=== PATIENT | male | born 1955 | race Caucasian/White ===

== ENCOUNTER 2016-04-01 23:58 | Emergency (ER) | payer OTHER ==
[~2016-04-01] VITALS: Ht 182.9 cm; Wt 89.5 kg
[~2016-04-01 23:58] MED LIST: ATOR20TA38 PO; CLON-412 PO; HYDR-3612 PO; OMEP40CA6 PO
[2016-04-02 00:23] VITALS: Ht 182.9 cm; Wt 89.5 kg
[2016-04-02] MEDS ORDERED: KETOROLAC 15 MG INJ IM STA (05:28)
--- NOTE | 2016-04-02 06:06 | ERD ---
ER Documentation Chief Complaint Date/Time DATE: 04/02/16 TIME: 06:06 Chief Complaint Left leg pain HPI 60 year old male BIB EMS presents to ED with CC of left leg pain x weeks. Patient states that he has a history of low back pain and arthritis. He believes he has been walking more than usual and now has pain in left hip and knee. He denies fever, erythema, swelling, trauma, numbness/tingling, loss of bowel control, urinary incontinence and loss in ROM. He is seen by a pain management physician, how prescribes him Oxycodone. He states that the alleviates his pain, and he has not finished his last prescription yet. Denies recent travel. States that pain does not occur only while walking and does not get better with rest. ROS All systems reviewed and are negative except as per history of present illness. Medications Home Meds Active Scripts Cyclobenzaprine Hcl* (Cyclobenzaprine Hcl*) 10 Mg Tablet, 10 MG PO TID, #15 TAB Prov:Eli Arriaza PA-C 04/02/16 Reported Medications Atorvastatin Calcium* (Atorvastatin Calcium*) 20 Mg Tablet, 20 MG PO HS, TAB 05/07/14 Clonazepam* (Klonopin*) 1 Mg Tablet, 2 MG PO BID 10/26/12 Hydrocodone Bit-Acetaminophen* ([place]*) 1 Tab Tab, 1 TAB PO BID Y 10/26/12 Omeprazole* (Omeprazole*) 40 Mg Capsule.dr, 40 MG PO DAILY 10/26/12 Allergies Allergies: Coded Allergies: No Known Allergy (Verified , 05/07/14) PMhx/Soc History of Surgery: Yes (left hip replacement, left knee) Anesthesia Reaction: No Hx Neurological Disorder: No Hx Respiratory Disorders: No Hx Cardiac Disorders: No Hx Psychiatric Problems: No Hx Miscellaneous Medical Probl: Yes (herniated discs) Hx Alcohol Use: Yes (occassional) Hx Substance Use: No Hx Tobacco Use: No Smoking Status: Never smoker Physical Exam Vitals Physical Exam GENERAL: Non-toxic. No apparent signs of distress. LUNGS: Clear to auscultation. No accessory muscle use. No wheezing, no crackles. No signs or symptoms of respiratory distress. HEART: Regular rate and rhythm. No murmurs, clicks, rubs or gallops. BACK: No midline tenderness, no erythema or edema, no crepitus, no CVA tenderness EXTREMITIES: Full ROM in all extremities, no notable trauma or tenderness to palpation of joints.2+ DP pulses bilaterally. Good cap refill. NEURO: 5/5 strength in all extremities, negative straight leg raise bilaterally , full sensation intact in BLE. Cranial nerves are grossly intact. Normal mental status for age. Good muscle tone. SKIN: There is no apparent rash, petechiae, erythema or swelling. Good skin turgor. Results 24 hrs Current Medications Medications (Trade) Dose Ordered Sig/Janie Route PRN Reason Start Time Stop Time Status Last Admin Dose Admin Ketorolac Tromethamine (Toradol) 15 mg ONCE STAT IM 04/02/16 05:28 04/02/16 05:30 DC 04/02/16 05:44 Procedures/MDM Patient was comfortably asleep as I walked into the exam room, he stated that he was able to sleep for 3 hours in the waiting room as well and is now feeling much better. States that the pain in his leg is improving. He has chronic low back pain and knee pain, for which he is sees a pain management provider for. He says that Oxycodone relieves his pain, but he is not asking for this today because he says that he still has some of his medication left. On exam the patient had full ROM In all extremities, had a normal neuro exam, and denies any red flag symptoms including loss of bowel control and urinary incontinence. I offered to give the patient a shot of Toradol, as he already is taking narcotic pain meds at home. Patient agreed to this plan. Will reassess after treatment. Patient tolerated Toradol well and stated that he had some relief of his pain, says he will continue to follow-up with his pain management doctor. I did offer a prescription for Flexeril in the event that exacerbation of pain is due to muscle spasm, the sedating effects of this medication were discussed and patient told not to drive after taking it. At this time I have low suspicion for cauda equina syndrome, epidural abscess, cord compression, osteomyelitis, fracture, DVT, PAD (claudication pain) and neurovascular compromise. Patient is stable for discharge and outpatient management, advised to follow-up with PCP in 1-2 days. Departure Diagnosis: Primary Impression: Pain of left leg Additional Impression: Low back pain Chronicity: chronic Back pain laterality: bilateral Sciatica presence: without sciatica Qualified Code: M54.5 - Chronic bilateral low back pain without sciatica Condition: Eli Faith PA-C Apr 02, 2016 06:06
[2016-04-02] MEDS ORDERED: CYCL-319 PO (06:10)
[2016-04-02 06:18] VITALS: BP 107/64; PULSE 77; RESP 20; TEMP 97.6
== END 2016-04-02 06:21 | disposition home or self-care (01) ==
LOC: FTE 23:58
DX: M79.605 Pain in left leg (principal); M54.5 Low back pain; Z96.642 Presence of left artificial hip joint
CPT/HCPCS: 96372; J1885

== ENCOUNTER 2016-05-17 10:32 | Emergency (ER) | payer OTHER ==
[~2016-05-17] VITALS: Ht 180.3 cm; Wt 80.5 kg
[~2016-05-17 10:32] MED LIST changes: +CYCL-319 PO
[2016-05-17 10:39] VITALS: Ht 180.3 cm; Wt 80.5 kg
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
--- NOTE | 2016-05-17 13:33 | RADRPT ---
PROCEDURE: CT Facial Bones. CLINICAL INDICATION: Trauma. Facial pain. TECHNIQUE: Helical axial sections were obtained through the facial bones without intravenous contr ast enhancement. Sagittal and coronal reformatted images were accomplished using the data from the axial images. Total exam DLP is 597.28 mGy-cm. CTDIvol is 29.54 mGy. One or more of the followin g dose reduction techniques were used: Automated exposure control, adjustment of the mA and/or kV ac cording to patient size, use of iterative reconstruction technique. COMPARISON: No prior study is available for comparison. FINDINGS: Paranasal sinuses are normal. There is no fluid, mass, or mucosal thickening. There is no bone abnormality. There is no fracture. There is no lytic or blastic lesion. The orbits are normal. The globes are intact. The extraocular muscles and optic nerves are normal. There is mild deviation of the superior nasal septum to the right. The ostiomeatal complexes are normal. There is a left middle turbinate natalie bullosa. The turbinates are otherwise normal. The mandible and maxilla are intact. The zygomatic arches and pterygoid plates are normal. IMPRESSION: 1. Mild deviation of the superior nasal septum to the right. 2. Left middle turbinate natalie bullosa. 3. Otherwise unremarkable study with no acute abnormality. RPTAT: QQ .Endy Coto MD, Date Time Electronically viewed and signed by .Endy Coto MD, on 05/17/2016 13:33 .R/
[2016-05-17] MEDS ORDERED: ACET500C5 PO (13:38)
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
== END 2016-05-17 14:32 | disposition home or self-care (01) ==
LOC: FTE 10:32
DX: S00.83XA Contusion of other part of head, initial encounter (principal); Y04.0XXA Assault by unarmed brawl or fight, initial encounter; Y92.009 Unspecified place in unspecified non-institutional (private) residence as the place of occurrence of the external cause; Z96.642 Presence of left artificial hip joint
CPT/HCPCS: 70450; 70486; 72125; Z7502

== ENCOUNTER 2018-09-16 04:15 | Inpatient (IN) | payer OTHER ==
[~2018-09-16] VITALS: Ht 182.9 cm; Wt 88.1 kg
[~2018-09-16 04:15] MED LIST changes: +ACET500C5 PO; +BUPR300T4 PO; -CYCL-319 PO; +CYCL10TA7 PO; +LURA120T PO; +NAPR-985 PO; +OXYC30TA PO; +TRAZ150T65 PO
[2018-09-16 06:15] VITALS: BP 90/57; PULSE 68; RESP 17
[2018-09-16 07:25] VITALS: BP 95/50; PULSE 75; RESP 18
[2018-09-16 10:02] VITALS: Ht 182.9 cm; Wt 88.1 kg
[2018-09-16] MEDS ORDERED: HYDROCODONE/APAP (5/325) TAB PO PRN (10:30)
[2018-09-16] MEDS ORDERED: ACETAMINOPHEN 325 MG TAB PO PRN (10:30)
[2018-09-16] MEDS ORDERED: morphine 2 MG INJ IV PRN (10:30)
[2018-09-16] MEDS ORDERED: ONDANSETRON 4 MG INJ IV PRN (10:30)
[2018-09-16] MEDS ORDERED: MAGNESIUM HYDROXIDE 30ML CUP PO PRN (10:30)
[2018-09-16] MEDS ORDERED: NACL 0.9% 3 ML SYG IV SCH (10:30)
[2018-09-16 11:15] VITALS: BP 88/54; PULSE 76; RESP 22
[2018-09-16] MEDS: LEVOFLOXACIN 750MG/D5W (PMX) 150 ML IVPB SCH (12:32)
[2018-09-16] MEDS: BUPROPION (XL) 150 MG TAB PO SCH (12:35)
[2018-09-16] MEDS: clonAZEPAM 0.5 MG TAB PO SCH ×2 (12:35→21:00)
[2018-09-16] MEDS: HEPARIN 5,000 UNIT/1 ML VIAL SC SCH ×3 (14:39→22:00)
--- NOTE | 2018-09-16 15:13 | HP ---
Date/Time of Note Date/Time of Note DATE: 09/16/18 TIME: 15:06 Assessment/Plan VTE Prophylaxis Risk score (from Ns)>0 risk: 5 SCD applied (from Ns): Yes Pharmacological prophylaxis: heparin Lines/Catheters IV [facility]from [facility] [place] Urinary Cath still in place: No Assessment/Plan Hospital Course Assessment and plan 1. Sepsis pneumonia Continue with antibiotic. Antipyretics for fever Trend lactic level. Titrate down O2 Bronchodilators as needed f/u procalcitonin 2. History of substance abuse Patient reports living at sober living. No active issue noted at this time. 3. Leukocytosis secondary to #1 Antibiotics as needed for fever. 4. Normocytic normal chromic anemia Stable at present. Monitor 5. Reported dizziness Suspect dehydrated We will start IV fluids. Discussed POC with Result Diagram: 09/16/18 1041 09/16/18 1041 Results 24hrs Laboratory Tests Test 09/16/18 10:41 White Blood Count 12.1 H Red Blood Count 3.03 L Hemoglobin 9.6 L Hematocrit 28.8 L Mean Corpuscular Volume 95.0 Mean Corpuscular Hemoglobin 31.7 Mean Corpuscular Hemoglobin Concent 33.3 Red Cell Distribution Width 12.6 Platelet Count 168 Mean Platelet Volume 11.5 H Immature Granulocytes % 0.500 H Neutrophils % 79.8 H Lymphocytes % 8.1 L Monocytes % 10.0 Eosinophils % 1.3 Basophils % 0.3 Nucleated Red Blood Cells % 0.0 Immature Granulocytes # 0.060 H Neutrophils # 9.6 H Lymphocytes # 1.0 Monocytes # 1.2 H Eosinophils # 0.2 Basophils # 0.0 Nucleated Red Blood Cells # 0.0 Sodium Level 139 Potassium Level 3.8 Chloride Level 101 Carbon Dioxide Level 32 H Anion Gap 6 Blood Urea Nitrogen 15 Creatinine 0.74 Est Glomerular Filtrat Rate mL/min > 60 Glucose Level 110 Hemoglobin A1c 5.0 Calcium Level 8.5 Total Bilirubin 0.5 Direct Bilirubin 0.00 Indirect Bilirubin 0.5 Aspartate Amino Transf (AST/SGOT) 17 Alanine Aminotransferase (ALT/SGPT) 29 Alkaline Phosphatase 43 Total Protein 5.7 L Albumin 3.3 Globulin 2.40 Albumin/Globulin Ratio 1.37 HPI/ROS Admit Date/Time Admit Date/Time Sep 16, 2018 at 05:56 Hx of Present Illness This is a 63-year-old male with reported past medical history of bipolar disorder, depression, substance abuse with alcohol, who came to the hospital due to reports of dizziness and disorientation. Patient resides at a sober living. He states that he was going to the gym yesterday when he started to feel disoriented. Denies any chest pain or shortness of breath. He did not report losing any consciousness. Due to his symptoms tablets as well and is brought to the hospital at [place]. At outside hospital he was noted with some leukocytosis with white count at 13.3 thousand. Lactic acid was also seen at 2.4. He did have CT scan of his head also done with no evidence of acute infarction or hemorrhage. Chest x-ray was done however that did show patchy consolidation in the right upper and lower lung zones compatible with pneumonia. Due to insurance issues he was brought brought to [facility] for further evaluation. Labs again we demonstrated some leukocytosis likely from his pneumonia. He was afebrile on arrival. He was then to be shortness of breath. He has noted with some audible congestion upon auscultation. Chest x- ray in the hospital again redemonstrated right infrahilar consolidation or infiltrate compatible with pneumonia. We will evaluate him for the aformentiond issues. ROS 12 point review of systems obtained and entirely negative except that mentioned in history of present illness PMH/Family/Social Past Medical History Medical/surgical history 1.Bipolar disorder 2. Depression 2. Substance abuse with alcohol Medications Current Medications Atorvastatin Calcium (Lipitor) 20 mg HS PO ; Start 09/16/18 at 21:00 Bupropion HCl (Wellbutrin Xl) 300 mg DAILY PO Last administered on 09/16/18at 12:35; Admin Dose 300 MG; Start 09/16/18 at 12:00 Clonazepam (Klonopin) 2 mg BID PO Last administered on 09/16/18at 12:35; Admin Dose 2 MG; Start 09/16/18 at 10:30 Miscellaneous Information 120 mg QHS PO ; Start 09/16/18 at 21:00; Status UNV IV Flush (NS 3 ml) 3 ml PER PROTOCOL IV ; Start 09/16/18 at 10:30 Ondansetron HCl (Zofran Inj) 4 mg Q6H PRN IV NAUSEA/VOMITING; Start 09/16/18 at 10:30 Acetaminophen (Tylenol Tab) 650 mg Q6H PRN PO .PAIN 1-3 OR TEMP; Start 09/16/18 at 10:30 Acetaminophen/ Hydrocodone Bitart ([place] (5/325)) 1 tab Q6H PRN PO .MOD PAIN 4- 6; Start 09/16/18 at 10:30 Morphine Sulfate (morphine) 2 mg Q4H PRN IV .SEVERE PAIN 7-10; Start 09/16/18 at 10:30 Magnesium Hydroxide (Milk Of Mag) 30 ml DAILY PRN PO .CONSTIPATION; Start 09/16/18 at 10:30 Heparin Sodium (Porcine) (Heparin (5000 Units/1ml)) 5,000 unit Q8 SC Last administered on 09/16/18at 14:39; Admin Dose 5,000 UNIT; Start 09/16/18 at 14:00 Levofloxacin/ Dextrose 150 ml @ 100 mls/hr Q24H IVPB Last administered on 09/16/18at 12:32; Admin Dose 100 MLS/HR; Start 09/16/18 at 10:30 Pantoprazole (Protonix Tab) 40 mg DAILY@06 PO ; Start 09/17/18 at 06:00 Coded Allergies: No Known Allergy (Verified , 05/07/14) Social History Alcohol Use: other (History of alcohol abuse) Smoking Status: Unknown if ever smoked Drug Use: other (Denies) Exam/Review of Systems Vital Signs Vitals Vital Signs Date Temp Pulse Resp B/P (MAP) Pulse Ox O2 O2 Flow FiO2 Time Delivery Rate 09/16/18 98.0 76 22 88/54 (65) 95 11:15 09/16/18 4.0 10:09 09/16/18 Nasal 08:30 Cannula Exam Constitutional: alert, oriented Psych: nl mood/affect Head: normocephalic Eyes: nl conjunctiva Neck: supple, non-tender Respiratory: congested cough, other (No obvious wheezing or rhonchi but congestion audible on auscultation) Cardiovascular: other (Regular rate) Gastrointestinal: soft, non-tender Musculoskeletal: No swelling Neurological: PRODUCT MERCHANDISER II-XII intact, nl mental status, nl speech Skin: nl ISABELLA Bui NP Sep 16, 2018 15:13
[2018-09-16] MEDS: LACTATED RINGER'S 1,000 ML IV SCH (16:43)
[2018-09-16] MEDS ORDERED: ALBUTEROL/IPRATROPIUM (NEB) 3 ML AMP HHN PRN (17:00)
[2018-09-16 19:53] VITALS: BP 91/51; PULSE 69; RESP 20
[2018-09-16] MEDS ORDERED: NON-FORMULARY/PATIENT OWN MED (Lurasidone Hcl (Latuda) 120 MG) PO SCH (21:00)
[2018-09-16] MEDS: ATORVASTATIN 20 MG TAB PO SCH (21:41)
[2018-09-17] VITALS (7 sets, daily range): BP systolic 81–99; BP diastolic 48–59; PULSE 71–78; RESP 18–22
[2018-09-17] MEDS: LACTATED RINGER'S 1,000 ML IV SCH ×4 (04:17→19:30)
[2018-09-17] MEDS: HEPARIN 5,000 UNIT/1 ML VIAL SC SCH ×3 (06:00→19:57)
[2018-09-17] MEDS: PANTOPRAZOLE (EC) 40 MG TAB PO SCH (06:17)
[2018-09-17] MEDS ORDERED: SOD CHLORIDE 0.9% 500 ML IV ONE (08:30)
[2018-09-17] MEDS: BUPROPION (XL) 150 MG TAB PO SCH (08:39)
[2018-09-17] MEDS: clonAZEPAM 0.5 MG TAB PO SCH ×2 (08:39→19:48)
[2018-09-17] MEDS ORDERED: NON-FORMULARY/PATIENT OWN MED (Omeprazole* 40 MG) PO SCH (09:00)
[2018-09-17] MEDS: LEVOFLOXACIN 750MG/D5W (PMX) 150 ML IVPB SCH (10:07)
[2018-09-17] MEDS: [UNRECOGNIZED DRUG - OTHER] XX SCH ×2 (13:00→19:49)
--- NOTE | 2018-09-17 13:24 | PN ---
Date/Time of Note Date/Time of Note DATE: 09/17/18 TIME: 13:21 Assessment/Plan VTE Prophylaxis Risk score (from Ns)>0 risk: 4 SCD applied (from Ns): Yes Pharmacological prophylaxis: heparin Lines/Catheters IV [facility] Peripheral IV Urinary Cath still in place: No Assessment/Plan Hospital Course Assessment and plan 1. Sepsis pneumonia Continue with antibiotic. Antipyretics for fever Titrate down O2 Bronchodilators as needed 2. History of substance abuse Patient reports living at sober living. No active issue noted at this time. 3. Leukocytosis secondary to #1 Antibiotics as needed for fever. 4. Normocytic normal chromic anemia Stable at present. Monitor 5. Reported dizziness dehydration?/hypotension continue IVF f/u echo/carotid doppler/head CT Disposition and plan. Continue with IV fluids. Monitor blood pressure trend. Follow-up on echo/head CT/carotid Doppler. Further recommendations pending clinical course. Discussed POC with Result Diagram: 09/17/18 0514 09/17/18 0514 Results 24hrs Laboratory Tests Test 09/17/18 05:14 White Blood Count 7.9 # Red Blood Count 2.75 L Hemoglobin 8.6 L Hematocrit 27.1 L Mean Corpuscular Volume 98.5 Mean Corpuscular Hemoglobin 31.3 Mean Corpuscular Hemoglobin Concent 31.7 L Red Cell Distribution Width 12.6 Platelet Count 157 Mean Platelet Volume 11.6 H Immature Granulocytes % 0.400 Neutrophils % 72.4 Lymphocytes % 12.5 L Monocytes % 11.8 H Eosinophils % 2.4 Basophils % 0.5 Nucleated Red Blood Cells % 0.0 Immature Granulocytes # 0.030 Neutrophils # 5.7 Lymphocytes # 1.0 Monocytes # 0.9 Eosinophils # 0.2 Basophils # 0.0 Nucleated Red Blood Cells # 0.0 Sodium Level 138 Potassium Level 4.0 Chloride Level 100 Carbon Dioxide Level 34 H Anion Gap 4 L Blood Urea Nitrogen 9 Creatinine 0.61 Est Glomerular Filtrat Rate mL/min > 60 Glucose Level 91 Calcium Level 8.2 L Phosphorus Level 3.0 Magnesium Level 1.9 Total Bilirubin 0.2 Direct Bilirubin 0.00 Indirect Bilirubin 0.2 Aspartate Amino Transf (AST/SGOT) 22 Alanine Aminotransferase (ALT/SGPT) 29 Alkaline Phosphatase 48 Total Protein 5.1 L Albumin 2.7 L Globulin 2.40 Albumin/Globulin Ratio 1.12 Triglycerides Level 105 Cholesterol Level 115 LDL Cholesterol, Calculated 64 HDL Cholesterol 30 Cholesterol/HDL Ratio 3.8 Thyroid Stimulating Hormone (TSH) 1.410 Free Thyroxine Index 2.27 Thyroxine (T4) 5.4 L Triiodothyronine (T3) Uptake 42.0 H Subjective 24 Hr Interval Summary Free Text/Dictation Alert oriented but noted with low blood pressure this morning. Reports some dizziness intermittently Exam/Review of Systems Exam Vitals Vital Signs Date Temp Pulse Resp B/P (MAP) Pulse Ox O2 O2 Flow FiO2 Time Delivery Rate 09/17/18 97.8 71 89/50 (63) 93 Nasal 2.0 12:14 Cannula 09/17/18 20 07:19 Intake and Output 09/16/18 09/16/18 09/17/18 1515:00 23:00 07:00 IntakeIntake Total 790 ml 1300 ml OutputOutput Total 300 ml BalanceBalance 490 ml 1300 ml Exam Constitutional: alert, oriented Psych: nl mood/affect Head: normocephalic Eyes: nl conjunctiva Neck: supple, non-tender Respiratory: congested cough, other (No obvious wheezing or rhonchi but congestion audible on auscultation) Cardiovascular: other (Regular rate) Gastrointestinal: soft, non-tender Musculoskeletal: No swelling Neurological: BRICKLAYER PAVING BRICK II-XII intact, nl mental status, nl speech Skin: nl turgor Results Results 24hrs Laboratory Tests Test 09/17/18 05:14 White Blood Count 7.9 # Red Blood Count 2.75 L Hemoglobin 8.6 L Hematocrit 27.1 L Mean Corpuscular Volume 98.5 Mean Corpuscular Hemoglobin 31.3 Mean Corpuscular Hemoglobin Concent 31.7 L Red Cell Distribution Width 12.6 Platelet Count 157 Mean Platelet Volume 11.6 H Immature Granulocytes % 0.400 Neutrophils % 72.4 Lymphocytes % 12.5 L Monocytes % 11.8 H Eosinophils % 2.4 Basophils % 0.5 Nucleated Red Blood Cells % 0.0 Immature Granulocytes # 0.030 Neutrophils # 5.7 Lymphocytes # 1.0 Monocytes # 0.9 Eosinophils # 0.2 Basophils # 0.0 Nucleated Red Blood Cells # 0.0 Sodium Level 138 Potassium Level 4.0 Chloride Level 100 Carbon Dioxide Level 34 H Anion Gap 4 L Blood Urea Nitrogen 9 Creatinine 0.61 Est Glomerular Filtrat Rate mL/min > 60 Glucose Level 91 Calcium Level 8.2 L Phosphorus Level 3.0 Magnesium Level 1.9 Total Bilirubin 0.2 Direct Bilirubin 0.00 Indirect Bilirubin 0.2 Aspartate Amino Transf (AST/SGOT) 22 Alanine Aminotransferase (ALT/SGPT) 29 Alkaline Phosphatase 48 Total Protein 5.1 L Albumin 2.7 L Globulin 2.40 Albumin/Globulin Ratio 1.12 Triglycerides Level 105 Cholesterol Level 115 LDL Cholesterol, Calculated 64 HDL Cholesterol 30 Cholesterol/HDL Ratio 3.8 Thyroid Stimulating Hormone (TSH) 1.410 Free Thyroxine Index 2.27 Thyroxine (T4) 5.4 L Triiodothyronine (T3) Uptake 42.0 H Medications Medication Current Medications Atorvastatin Calcium (Lipitor) 20 mg HS PO Last administered on 09/16/18at 21:41; Admin Dose 20 MG; Start 09/16/18 at 21:00 Bupropion HCl (Wellbutrin Xl) 300 mg DAILY PO Last administered on 09/17/18at 08:39; Admin Dose 300 MG; Start 09/16/18 at 12:00 Clonazepam (Klonopin) 2 mg BID PO Last administered on 09/17/18at 08:39; Admin Dose 2 MG; Start 09/16/18 at 10:30 Miscellaneous Information 120 mg QHS PO ; Start 09/16/18 at 21:00; Status UNV IV Flush (NS 3 ml) 3 ml PER PROTOCOL IV ; Start 09/16/18 at 10:30 Ondansetron HCl (Zofran Inj) 4 mg Q6H PRN IV NAUSEA/VOMITING; Start 09/16/18 at 10:30 Acetaminophen (Tylenol Tab) 650 mg Q6H PRN PO .PAIN 1-3 OR TEMP; Start 09/16/18 at 10:30 Acetaminophen/ Hydrocodone Bitart ([place] (5/325)) 1 tab Q6H PRN PO .MOD PAIN 4- 6; Start 09/16/18 at 10:30 Morphine Sulfate (morphine) 2 mg Q4H PRN IV .SEVERE PAIN 7-10; Start 09/16/18 at 10:30 Magnesium Hydroxide (Milk Of Mag) 30 ml DAILY PRN PO .CONSTIPATION; Start 09/16/18 at 10:30 Levofloxacin/ Dextrose 150 ml @ 100 mls/hr Q24H IVPB Last administered on 09/17/18at 10:07; Admin Dose 100 MLS/HR; Start 09/16/18 at 10:30 Pantoprazole (Protonix Tab) 40 mg DAILY@06 PO Last administered on 09/17/18at 06:17; Admin Dose 40 MG; Start 09/17/18 at 06:00 Heparin Sodium (Porcine) (Heparin (5000 Units/1ml)) 5,000 unit BID SC Last administered on 09/17/18at 09:14; Admin Dose 5,000 UNIT; Start 09/16/18 at 21:00 Lactated Ringer's 1,000 ml @ 80 mls/hr [id number] IV Last administered on 09/17/18at 04:17; Admin Dose 80 MLS/HR; Start 09/16/18 at 15:30 Albuterol/ Ipratropium (Duoneb) 3 ml Q3H RESP THERAPY PRN HHN SHORTNESS OF BREATH; Start 09/16/18 at 17:00 Lactated Ringer's 1,000 ml @ 100 mls/hr Q10H IV ; Start 09/17/18 at 13:00 Miscellaneous Information (*Order Clarification Bulletin) Lurasidone Hcl (Latuda) 120 MG: PLE... Q8H XX ; Start 09/17/18 at 13:00 ISABELLA MADISON NP Sep 17, 2018 13:24
[2018-09-17] MEDS: ATORVASTATIN 20 MG TAB PO SCH (19:48)
[2018-09-18] VITALS: BP 95/51; PULSE 85; RESP 18
[2018-09-18 03:56] VITALS: BP 96/52; PULSE 73; RESP 18
[2018-09-18] MEDS: LACTATED RINGER'S 1,000 ML IV SCH ×2 (05:00→08:50)
[2018-09-18] MEDS: [UNRECOGNIZED DRUG - OTHER] XX SCH (05:00)
[2018-09-18] MEDS: PANTOPRAZOLE (EC) 40 MG TAB PO SCH ×2 (06:30→08:49)
[2018-09-18 07:18] VITALS: BP 92/54; PULSE 65; RESP 18
[2018-09-18] MEDS: LEVOFLOXACIN 750MG/D5W (PMX) 150 ML IVPB SCH (08:49)
[2018-09-18] MEDS: BUPROPION (XL) 150 MG TAB PO SCH (08:50)
[2018-09-18] MEDS: clonAZEPAM 0.5 MG TAB PO SCH (08:50)
[2018-09-18] MEDS: HEPARIN 5,000 UNIT/1 ML VIAL SC SCH (08:57)
--- NOTE | 2018-09-18 11:26 | PN ---
Date/Time of Note Date/Time of Note DATE: 09/18/18 TIME: 11:24 Assessment/Plan VTE Prophylaxis Risk score (from Nsg)>0 risk: 4 SCD applied (from Ns): No SCD contraindicated: other Pharmacological prophylaxis: heparin Lines/Catheters IV C[facility]ter Type (from [facility] Peripheral IV Urinary Cath still in place: No Assessment/Plan Hospital Course SUBJECTIVE: Complains of feeling weak. OBJECTIVE: Physical Exam General: Adequately build 63 year-old male lying in bed in no apparent distress. HEENT: Normocephalic, atraumatic. Eyes: Anicteric sclerae, conjunctivae clear. ENT: Nasal septum midline, oral mucosa moist. Neck supple (surgical scar in the right anterior neck lateral to the Wilbert's apple continues to. Respiratory: Bilaterally clear breath sounds. No use of accessory muscles of respiration. No adventitious breath sounds. Cardiovascular: S1, S2 heard. Regular rate and rhythm. Abdomen: Soft, nontender, and nondistended. Bowel sounds positive in all 4 quadrants. Genitourinary: Deferred. Extremities: No cyanosis, no clubbing, no edema. Peripheral pulses palpable. Neurologic: Cranial nerves II through XII grossly intact. The patient is awake, alert, and oriented. Labs & Vitals per chart ASSESSMENT & PLAN 63-year-old male with comorbidities including mood disorder, remote history of substance abuse, and reported remote history of lymphoproliferative disorder, who presented to the local emergency room status post reported fall and was transferred to [facility] because of insurance reasons for further evaluation. 1. Syncope. Etiology could be multifactorial including underlying pneumonia. 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 Brain imaging and carotid Doppler study negative. Pending 2D echocardiogram. Obtain orthostatic vital signs. Hold medications that can cause orthostasis. 2. Community-acquired pneumonia. Continue antimicrobials. Continue inhaled bronchodilators and supplemental oxygen as needed. 3. Normocytic, normochromic anemia. Etiology unclear. Obtain iron panel. Monitor H&H closely. Obtain stool for OB. 4. Remote history of substance abuse. Obtain urine drug screen. 5. Mood disorder. Continue mood stabilizers except for those that can cause orthostasis. 6. Fluids, electrolytes, and nutrition. Regular diet. 7. DVT prophylaxis. Subcutaneous heparin. 8. Plan. Continue antimicrobials. Obtain orthostatic vital signs. Await 2D echocardiogram. Obtain physical therapy evaluation. The patient was seen in collaboration with Dr. East. Result Diagram: 09/18/18 1000 09/18/18 1000 Results 24hrs Laboratory Tests Test 09/18/18 10:00 White Blood Count 6.2 # Red Blood Count 2.79 L Hemoglobin 8.6 L Hematocrit 27.3 L Mean Corpuscular Volume 97.8 Mean Corpuscular Hemoglobin 30.8 Mean Corpuscular Hemoglobin Concent 31.5 L Red Cell Distribution Width 12.3 Platelet Count 184 Mean Platelet Volume 10.8 H Immature Granulocytes % 0.500 H Neutrophils % 58.6 Lymphocytes % 23.3 Monocytes % 14.1 H Eosinophils % 2.9 Basophils % 0.6 Nucleated Red Blood Cells % 0.0 Immature Granulocytes # 0.030 Neutrophils # 3.6 Lymphocytes # 1.4 Monocytes # 0.9 Eosinophils # 0.2 Basophils # 0.0 Nucleated Red Blood Cells # 0.0 Sodium Level 139 Potassium Level 3.5 Chloride Level 98 Carbon Dioxide Level 37 H Anion Gap 4 L Blood Urea Nitrogen 8 Creatinine 0.71 Est Glomerular Filtrat Rate mL/min > 60 Glucose Level 101 Calcium Level 8.4 Total Bilirubin 0.3 Direct Bilirubin 0.00 Indirect Bilirubin 0.3 Aspartate Amino Transf (AST/SGOT) 30 Alanine Aminotransferase (ALT/SGPT) 27 Alkaline Phosphatase 41 L Total Protein 5.6 L Albumin 2.9 L Globulin 2.70 Albumin/Globulin Ratio 1.07 Exam/Review of Systems Exam Vitals Vital Signs Date Temp Pulse Resp B/P (MAP) Pulse Ox O2 O2 Flow FiO2 Time Delivery Rate 09/18/18 Nasal 2.0 08:30 Cannula 09/18/18 97.8 65 18 92/54 (04) 95 07:18 Intake and Output 09/17/18 09/17/18 09/18/18 1515:00 23:00 07:00 IntakeIntake Total 850 ml 1530 ml 240 ml OutputOutput Total 1100 ml 750 ml BalanceBalance -250 ml 780 ml 240 ml Results Results 24hrs Laboratory Tests Test 09/18/18 10:00 White Blood Count 6.2 # Red Blood Count 2.79 L Hemoglobin 8.6 L Hematocrit 27.3 L Mean Corpuscular Volume 97.8 Mean Corpuscular Hemoglobin 30.8 Mean Corpuscular Hemoglobin Concent 31.5 L Red Cell Distribution Width 12.3 Platelet Count 184 Mean Platelet Volume 10.8 H Immature Granulocytes % 0.500 H Neutrophils % 58.6 Lymphocytes % 23.3 Monocytes % 14.1 H Eosinophils % 2.9 Basophils % 0.6 Nucleated Red Blood Cells % 0.0 Immature Granulocytes # 0.030 Neutrophils # 3.6 Lymphocytes # 1.4 Monocytes # 0.9 Eosinophils # 0.2 Basophils # 0.0 Nucleated Red Blood Cells # 0.0 Sodium Level 139 Potassium Level 3.5 Chloride Level 98 Carbon Dioxide Level 37 H Anion Gap 4 L Blood Urea Nitrogen 8 Creatinine 0.71 Est Glomerular Filtrat Rate mL/min > 60 Glucose Level 101 Calcium Level 8.4 Total Bilirubin 0.3 Direct Bilirubin 0.00 Indirect Bilirubin 0.3 Aspartate Amino Transf (AST/SGOT) 30 Alanine Aminotransferase (ALT/SGPT) 27 Alkaline Phosphatase 41 L Total Protein 5.6 L Albumin 2.9 L Globulin 2.70 Albumin/Globulin Ratio 1.07 Medications Medication Current Medications Atorvastatin Calcium (Lipitor) 20 mg HS PO Last administered on 09/17/18at 19:48; Admin Dose 20 MG; Start 09/16/18 at 21:00 Bupropion HCl (Wellbutrin Xl) 300 mg DAILY PO Last administered on 09/18/18at 08:50; Admin Dose 300 MG; Start 09/16/18 at 12:00 Clonazepam (Klonopin) 2 mg BID PO Last administered on 09/18/18at 08:50; Admin Dose 2 MG; Start 09/16/18 at 10:30 Miscellaneous Information 120 mg QHS PO ; Start 09/16/18 at 21:00; Status UNV IV Flush (NS 3 ml) 3 ml PER PROTOCOL IV ; Start 09/16/18 at 10:30 Ondansetron HCl (Zofran Inj) 4 mg Q6H PRN IV NAUSEA/VOMITING; Start 09/16/18 at 10:30 Acetaminophen (Tylenol Tab) 650 mg Q6H PRN PO .PAIN 1-3 OR TEMP; Start 09/16/18 at 10:30 Acetaminophen/ Hydrocodone Bitart ([place] (5/325)) 1 tab Q6H PRN PO .MOD PAIN 4- 6; Start 09/16/18 at 10:30 Morphine Sulfate (morphine) 2 mg Q4H PRN IV .SEVERE PAIN 7-10; Start 09/16/18 at 10:30 Magnesium Hydroxide (Milk Of Mag) 30 ml DAILY PRN PO .CONSTIPATION; Start 09/16/18 at 10:30 Levofloxacin/ Dextrose 150 ml @ 100 mls/hr Q24H IVPB Last administered on 09/18/18at 08:49; Admin Dose 100 MLS/HR; Start 09/16/18 at 10:30 Pantoprazole (Protonix Tab) 40 mg DAILY@06 PO Last administered on 09/18/18at 08:49; Admin Dose 40 MG; Start 09/17/18 at 06:00 Heparin Sodium (Porcine) (Heparin (5000 Units/1ml)) 5,000 unit BID SC Last administered on 09/18/18at 08:57; Admin Dose 5,000 UNIT; Start 09/16/18 at 21:00 Albuterol/ Ipratropium (Duoneb) 3 ml Q3H RESP THERAPY PRN HHN SHORTNESS OF BREATH; Start 09/16/18 at 17:00 Miscellaneous Information (*Order Clarification Bulletin) Lurasidone Hcl (Latuda) 120 MG: PLE... Q8H XX ; Start 09/17/18 at 13:00; Status Hold SLICK FERNANDES NP Sep 18, 2018 11:26
[2018-09-18] MEDS ORDERED: CEPASTAT LOZENGE MT PRN (12:00)
[2018-09-18 12:15] VITALS: BP 113/68; PULSE 68; RESP 18
[2018-09-18 16:10] VITALS: BP 102/57; PULSE 69; RESP 16
--- NOTE | 2018-09-19 07:06 | DS ---
Date/Time of Note Date/Time of Note DATE: 09/19/18 TIME: 07:06 Discharge Summary Admission/Discharge Info Admit Date/Time Sep 17, 2018 at 08:08 Discharge Date/Time Sep 18, 2018 at 18:30 ELOPED Discharge Diagnosis 1. Syncope. 2. Community-acquired pneumonia. 3. Normocytic, normochromic anemia. 4. Remote history of substance abuse. 5. Mood disorder. Patient Condition: Guarded Procedures Brain CT IMPRESSION: 1. No acute intracranial abnormality. No intracranial hemorrhage, extra-axial fluid collection, mass lesion or hydrocephalous. Carotid Doppler IMPRESSION: No evidence for hemodynamically significant stenosis in the bilateral internal carotid arteries 2D Echocardiogram Pending results. Hx of Present Illness This is a 63-year-old male with comorbidities including mood disorder, remote history of substance abuse, and reported remote history of lymphoproliferative disorder, who presented to the local emergency room status post reported fall and was transferred to [facility] because of insurance reasons for further evaluation. Hospital Course The patient was admitted to inpatient telemetry floor. The etiology of the patient's underlying syncope was extensively evaluated. The patient was noticed to be hypotensive, which could have contributed to the patient's syncopal episode. Orthostatic vital signs were ordered. All the drugs that can cause orthostasis were put on hold. The patient underwent a brain CT scan that was negative for any acute intracranial findings. The patient's carotid Dopplers were negative for any hemodynamically significant stenosis. The patient underwent a 2D echocardiogram and the official results are pending at this time. A physical therapy evaluation was ordered. Physical therapy recommended no DME needs. The patient was also noticed to have evidence of underlying community-acquired pneumonia. The patient's syncopal episode could have been caused by the underlying pneumonia too. The patient was started on appropriate antimicrobial therapy. The patient was maintained on supplemental oxygen and inhaled bronchodilators as needed. He was noticed to have normocytic, normochromic anemia. His iron panel showed iron deficiency. He has a history of mood disorder. He was maintained on mood stabilizers except for those that can cause orthostasis. The patient has a remote history of substance abuse. The patient verbalized that he relapsed and used amphetamines recently. The patient's urine drug screen was negative for amphetamines. On 09/18/2018, towards the evening, the patient could not be found in his room by the nurse. The nurse found the shelter monitor and hospital gown on the bed. His personal belongings were also found in the room. Security was informed about the incident. [employer] was called since the patient left the hospital with IV Hep-Lock in place. No discharge disposition could be confirmed and no follow-up could be confirmed since the patient eloped from the hospital. The patient was seen in collaboration with Dr. East. Home Meds Active Scripts Cyclobenzaprine Hcl* (Cyclobenzaprine Hcl*) 10 Mg Tablet, 10 MG PO TID, #30 TAB Prov:JAISON RUELASC 03/19/18 Naproxen* (Naprosyn*) 500 Mg Tablet, 500 MG PO BID PRN for PAIN AND/OR IN FLAMMATION, #30 TAB Prov:JAISON RUELASC 03/19/18 Acetaminophen* (Tylophen*) 500 Mg Capsule, 1 CAP PO Q6H PRN for PAIN AND OR ELEVATED TEMP, #20 CAP Prov:JULIA POLLOCK-C 05/17/16 Cyclobenzaprine Hcl* (Cyclobenzaprine Hcl*) 10 Mg Tablet, 10 MG PO TID, #15 TAB Prov:Eli Arriaza PA-C 04/02/16 Reported Medications Trazodone Hcl* (Trazodone Hcl*) 150 Mg Tablet, 150 MG PO QHS, #30 TAB 09/16/18 Oxycodone Hcl* (IR) (Oxycodone Hcl*) 30 Mg Tablet, 30 MG PO TID PRN for PAIN, TAB 09/16/18 Lurasidone Hcl (LATUDA) 120 Mg Tablet, 120 MG PO QHS, #30 TAB 09/16/18 Bupropion Hcl* (Bupropion XL*) 300 Mg Tab.sr.24h, 300 MG PO DAILY, TAB.SA 09/16/18 Atorvastatin Calcium* (Atorvastatin Calcium*) 20 Mg Tablet, 20 MG PO HS, TAB 05/07/14 Clonazepam* (Klonopin*) 1 Mg Tablet, 2 MG PO BID 10/26/12 Hydrocodone Bit-Acetaminophen* (Belfast*) 1 Tab Tab, 1 TAB PO BID PRN 10/26/12 Omeprazole* (Omeprazole*) 40 Mg Capsule.dr, 40 MG PO DAILY 10/26/12 Follow-up Plan No follow-up plan could be confirmed since the patient eloped from the hospital. Primary Care Provider Not On Staff Doctor Time spent on discharge: < 30 minutes Pending Labs Laboratory Tests Test 09/18/18 09:59 09/18/18 10:00 09/18/18 15:20 Iron Level < 10 ug/dl (35-150) Total Iron Binding 241 ug/dl (241-421) Capacity Percent Iron % SAT (22-52) Saturation Ferritin 65.2 ng/ml (11.1-264.0) White Blood Count 6.2 10^3/ul (4.8-10.8) Red Blood Count 2.79 10^6/ul (4.70-6.10 ) Hemoglobin 8.6 g/dl (14.0-18.0) Hematocrit 27.3 % (42.0-52.0) Mean Corpuscular 97.8 Volume fl (82.0-101.0) Mean Corpuscular 30.8 Hemoglobin pg (29.0-33.0) Mean Corpuscular 31.5 Hemoglobin Concent g/dl (32.0-37.0) Red Cell 12.3 % (11.5-14.5) Distribution Width Platelet Count 184 10^3/UL (140-415) Mean Platelet 10.8 fl (7.4-10.4) Volume Immature 0.500 Granulocytes % % (0.001-0.429) Neutrophils % 58.6 % (39.0-77.0) Lymphocytes % 23.3 % (15.0-51.0) Monocytes % 14.1 % (0.0-11.0) Eosinophils % 2.9 % (0.0-7.0) Basophils % 0.6 % (0.0-2.0) Nucleated Red Blood 0.0 Cells % /100WBC (0.0-0.0) Immature 0.030 Granulocytes # 10^3/ul (0.0-0.031 ) Neutrophils # 3.6 10^3/ul (1.6-7.5) Lymphocytes # 1.4 10^3/ul (0.8-2.9) Monocytes # 0.9 10^3/ul (0.3-0.9) Eosinophils # 0.2 10^3/ul (0.0-0.5) Basophils # 0.0 10^3/ul (0.0-0.1) Nucleated Red Blood 0.0 Cells # 10^3/ul (0.0-0.0) Sodium Level 139 mmol/L (135-144) Potassium Level 3.5 mmol/L (3.5-5.1) Chloride Level 98 mmol/L (97-110) Carbon Dioxide 37 mmol/L (21-31) Level Anion Gap 4 (5-13) Blood Urea Nitrogen 8 mg/dl (7-20) Creatinine 0.71 mg/dl (0.61-1.24) Est Glomerular > 60 mL/min (>60) Filtrat Rate mL/min Glucose Level 101 mg/dl (70-220) Calcium Level 8.4 mg/dl (8.4-10.2) Total Bilirubin 0.3 mg/dl (0.2-1.3) Direct Bilirubin 0.00 mg/dl (0.00-0.20) Indirect Bilirubin 0.3 mg/dl (0-1.1) Aspartate Amino 30 IU/L (15-46) Transf (AST/SGOT) Alanine 27 IU/L (13-69) Aminotransferase (A LT/SGPT) Alkaline 41 IU/L (42-121) Phosphatase Total Protein 5.6 g/dl (6.1-8.1) Albumin 2.9 g/dl (3.3-4.9) Globulin 2.70 g/dl (1.3-3.2) Albumin/Globulin 1.07 Ratio Urine Opiates Positive (NEGATIVE Screen ) Urine Barbiturates Negative (NEGATIVE ) Urine Amphetamines Negative (NEGATIVE Screen ) Urine Negative (NEGATIVE Benzodiazepines ) Screen Urine Cocaine Negative (NEGATIVE Screen ) Urine Cannabinoids Negative (NEGATIVE ) SLICK FERNANDES NP Sep 19, 2018 07:06
--- NOTE | 2018-09-19 16:53 | RADRPT ---
Echocardiogram Report Patient Name: ALO JEONGPatient ID: [id number] : 1955 (63y )Study Date: 09/18/2018 9:13:26 AM Gender: Radcession #: [id number] Tech: Timo Christensen [facility] Location: [address] Ref.Physician: ISABELLA MADISON Height(Cm): BSA: Weight(Kg): BMI: Quality: Adequate Order Physician: ISABELLA MADISON Account #: Procedures: Echocardiographic Report: Transthoracic echocardiogram with complete 2D, M-Mode, and doppler examination. Indications: Congestive Heart Failure. Measurements: 2D/M Mode Doppler Measurement Value Normal Range Measurement Value Normal Range LVIDd 2D 4.2 [ 4.2 - 5.8 ] cm AV Peak Rudy 1.5 [ 100.0 - 170.0 ] cm/sec LVIDs 2D 2.7 [ 2.5 - 4.0 ] cm AV Peak PG 9.0 [ 2.0 - 9.0 ] mmHg LVPWd 2D 1.0 [ 0.6 - 1.0 ] cm LVOT Peak Rudy 1.0 [ 70.0 - 110.0 ] cm/sec IVSd 2D 1.2 [ 0.6 - 1.0 ] cm LVOT Peak PG 4.0 [ 2.0 - 6.0 ] mmHg AoR Diam 2D 2.3 [ 2.6 - 3.4 ] cm MV E Peak Rudy 1.0 [ 60.0 - 130.0 ] cm/sec EDV 2D 79.5 [ 62.0 - 150.0 ] ml MV A Peak Rudy 0.9 [ 100.0 - 120.0 ] cm/sec ESV 2D 27.3 [ 21.0 - 61.0 ] ml MV E/A 1.2 [ 0.8 - 1.5 ] ratio EF 2D 65.7 [ 52.0 - 72.0 ] percent MV Decel Time 243 [ 104 - 258 ] msec LA Dimen 2D 2.9 [ 3.0 - 4.0 ] cm Lat E` Rudy 0.1 [ 10.0 - 15.0 ] cm/sec Lateral E/E` 7.0 [ 1.0 - 2.0 ] ratio Med E` Rudy 0.1 cm/sec MV E/A 1.2 [ 0.8 - 1.5 ] ratio TR Peak Rudy 2.1 [ 100.0 - 280.0 ] cm/sec TR Peak PG 18.0 mmHg RVSP 21.0 [ 10.0 - 36.0 ] mmHg Findings: Left Ventricle: Normal left ventricular systolic function. Normal left ventricular cavity size. Mild asymmetric septal hypertrophy. Ejection fraction is visually estimated at 60 %. Abnormal Diastolic Function. Right Ventricle: Normal right ventricular size. Normal right ventricular systolic function. Left Atrium: The left atrium is normal in size. Right Atrium: The right atrium is normal in size. Mitral Valve: Mild mitral leaflet calcification. Mild mitral annular calcification. Trace mitral regurgitation. Aortic Valve: No significant aortic stenosis or insufficiency. Aortic cusps appear mildly calcified. Tricuspid Valve: Normal appearance of the tricuspid valve. The estimated Peak RVSP is 21 mmHg. There is trace tricuspid regurgitation. Pericardium: Normal pericardium with no significant pericardial effusion. Aorta: Normal aortic root. IVC: Normal size and normal respiratory collapse consistent with normal right atrial pressure. Conclusions: Normal left ventricular systolic function. Normal left ventricular cavity size. Mild asymmetric septal hypertrophy. Ejection fraction is visually estimated at 60 %. Abnormal Diastolic Function. Normal right ventricular size. Normal right ventricular systolic function. No significant valvular stenosis or regurgitation seen. Normal pericardium with no significant pericardial effusion. Electronically Signed By: Ramon Whipple 2018-09-19 16:53:10 PDT
== END 2018-09-18 18:30 | disposition left against medical advice (07) | DRG 314 ==
LOC: INTOOBSV 05:56 → 6WM 05:56 → OBSVTOIN 09-17 08:08
PROVIDERS: ADMIT Internal Medicine; ATTEND Internal Medicine
DX: I95.9 Hypotension, unspecified (principal); J18.9 Pneumonia, unspecified organism; D64.9 Anemia, unspecified; F31.9 Bipolar disorder, unspecified; F10.10 Alcohol abuse, uncomplicated; E61.1 Iron deficiency
CPT/HCPCS: 70450; 71045; 80053; 80061; 80307; 82728; 83036; 83540; 83735; 84100; 84145; 84436; 84443; 84479; 85025; 87070; 87086; 87400; 93306; 93880; 97161; 99217; A4310; G0378; J1644; J1956; J7040; J7120

== ENCOUNTER 2018-10-26 06:18 | Day surgery (SDC) | payer OTHER ==
[~2018-10-26] VITALS: Ht 182.9 cm; Wt 90.3 kg
[~2018-10-26 06:18] MED LIST changes: +GUAI120S25 PO; +LEVO500T48 PO; +LURA80TA PO; +OMEP40CA38 PO; -OMEP40CA6 PO; +PANT40TA3 PO; +TAMS-14 PO; +THIA50TA11 PO
[2018-10-26 07:57] VITALS: BP 115/69; PULSE 58; RESP 16; Ht 182.9 cm; Wt 90.3 kg
[2018-10-26] MEDS ORDERED: LIDOCAINE 2% (SDV) 5 ML INJ ONE (10:26)
[2018-10-26] MEDS ORDERED: ROCURONIUM 50 MG INJ ONE (10:27)
[2018-10-26] MEDS ORDERED: PROPOFOL 20 ML ONE (10:27)
[2018-10-26] MEDS ORDERED: MIDAZOLAM 1 MG/ML 2 ML INJ ONE (10:27)
[2018-10-26] MEDS ORDERED: ONDANSETRON 4 MG INJ ONE (10:52)
[2018-10-26] MEDS ORDERED: DEXAMETHASONE 4 MG/ML 5 ML INJ ONE (10:52)
[2018-10-26] MEDS ORDERED: LIDOCAINE 1%/EPI (1:100,000) (MDV) 20 ML INJ ONE (11:06)
[2018-10-26] MEDS ORDERED: SUGAMMADEX SODIUM 200 MG/2 ML VIAL IV ONE (11:31)
[2018-10-26] MEDS ORDERED: KETOROLAC 30 MG INJ ONE (11:32)
[2018-10-26] MEDS ORDERED: BACITRACIN/POLYMYXIN 28.35 GM OINT TOP ONE (11:35)
[2018-10-26 11:50] VITALS: BP 128/60; PULSE 77; RESP 16
[2018-10-26] MEDS ORDERED: HYDROmorphONE 1 MG/5 ML IV SYRINGE IV PRN ×3 (12:00)
[2018-10-26] MEDS ORDERED: HYDROCODONE/APAP (7.5/325) TAB PO PRN (12:30)
[2018-10-26 12:40] VITALS: BP 138/79; PULSE 70; RESP 16
== END 2018-10-26 13:21 | disposition home or self-care (01) ==
LOC: SDS 06:18
PROVIDERS: ATTEND Otolaryngology Otolaryngology/Facial Plastic Surgery
DX: C44.311 Basal cell carcinoma of skin of nose (principal)
CPT/HCPCS: 14060; 71045; 88305; J1100; J1885; J2250; J2405; J3010; Z7512; Z7610